=== PATIENT | female | born 1960 | race Caucasian/White ===

== ENCOUNTER → 2017-02-24 | Outpatient (CLI) | payer OTHER ==
--- NOTE | 2017-02-24 14:56 | XR ---
Lumbar spine HISTORY: Strain, pain 3 views of the lumbar spine, no comparisons Lumbar vertebral bodies show preserved height. Bone mineralization is reduced. Anterolisthesis grade 1 L4-5. There is associated loss of disc height L4-5 and possibly vacuum phenomenon. Loss of disc hei ght also suspected L5-S1. Sclerosis present in the posterior elements. IMPRESSION: Spondylolisthesis L4-5, grade 1. Degenerative disc disease. Facet arthropathy. Difficult to exclude spondylolysis. Lumbar MRI or CT may be of benefit.
== END | disposition home or self-care (01) ==
LOC: RADXRMAIN 14:38
PROVIDERS: ATTEND Emergency Medicine
DX: M43.16 Spondylolisthesis, lumbar region (principal); M51.36 Other intervertebral disc degeneration, lumbar region; M48.8X6 Other specified spondylopathies, lumbar region
CPT/HCPCS: 72100

== ENCOUNTER → 2017-03-03 | Outpatient (CLI) | payer OTHER ==
--- NOTE | 2017-03-03 12:21 | XR ---
Left hip HISTORY: Left hip pain 2 views of the left hip No comparisons Bone mineralization, joint spaces and alignment are maintained. IMPRESSION: Normal left hip.
== END ==
LOC: RADXRMAIN 11:56
PROVIDERS: ATTEND Emergency Medicine
DX: M25.552 Pain in left hip (principal)
CPT/HCPCS: 73502

== ENCOUNTER → 2017-04-07 | Outpatient (CLI) | payer OTHER ==
--- NOTE | 2017-04-07 12:05 | MR ---
EXAMINATION TYPE: MR lumbar spine wo con DATE OF EXAM: 04/07/2017 11:54 AM COMPARISON: NONE HISTORY: Sprain of ligaments of lumbar spine, pain of legs, hip, and lower back Multiplanar, MultiSpin echo imaging of the lumbar spine was performed. L1-L2: Normal disc appearance without desiccation. No herniation, protrusion or disc bulging. No ca nal stenosis is present. Foramina are patent bilaterally. L2-L3: Normal disc appearance without desiccation. No herniation, protrusion or disc bulging. No ca nal stenosis is present. Foramina are patent bilaterally. L3-L4: Normal disc appearance without desiccation. No herniation, protrusion or disc bulging. No ca nal stenosis is present. Foramina are patent bilaterally. L4-L5: There is evidence of severe disc desiccation. Grade 1 anterolisthesis L4 and L5 3 mm. Broad-ba sed disc bulge with partial encapsulating spur resulting in disc endplate complex. Effacement of the ventral thecal sac with bilateral lateral recess stenosis. No evidence for central stenosis at this t blane. Bilateral foraminal encroachment. Facet joint arthropathy without spondylolysis. Degenerative en dplate marrow changes. L5-S1: Moderate disc desiccation. Circumferential disc bulge greatest posteriorly. Mild effacement ve ntral thecal sac. No evidence for lateral recess stenosis or central stenosis. Foramina are patent b ilaterally. Lumbar segments are intact. No paraspinal masses are identified. Conus medullaris has a normal appe arance. IMPRESSION: 1. Degenerative disc disease as discussed. 2. Grade 1 anterolisthesis L4 and L5 with the disc endplate complex and bilateral lateral recess sten osis. Bilateral foraminal encroachment at this level as well.
== END | disposition home or self-care (01) ==
LOC: RADMRIMAIN 11:17
PROVIDERS: ATTEND Emergency Medicine
DX: M48.061 Spinal stenosis, lumbar region without neurogenic claudication (principal); M51.36 Other intervertebral disc degeneration, lumbar region; M43.16 Spondylolisthesis, lumbar region
CPT/HCPCS: 72148

== ENCOUNTER → 2017-06-02 | Outpatient (CLI) | payer BC ==
--- NOTE | 2017-06-02 12:34 | MM ---
Reason for exam: additional evaluation requested from prior study. Last mammogram was performed 1 year and 5 months ago. History: Patient is postmenopausal and is nulliparous. Family history of breast cancer in maternal aunt. Took estrogen for 15 years beginning at age 30. Physical Findings: Nurse did not find any significant physical abnormalities on exam. MG Diagnostic Mammo w CAD LEX Bilateral CC and MLO view(s) were taken. LM, CC with magnification, and LM with magnification view(s) were taken of the right breast. Prior study comparison: December 17, 2015, left breast MG work up mamm w CAD LT. December 04, 2015, bilateral MG screening mammo w CAD. Finding: There are heterogeneous, grouped/clustered calcifications in the posterior middle position of left breast, only weel seen on CC images. There is a chronic nodularity in the right breast. New finding since December 17, 2015 and December 04, 2015. These results were verbally communicated with the patient and result sheet given to the patient on 06/02/17. ASSESSMENT: Suspicious, BI-RAD 4 RECOMMENDATION: Stereotactic core biopsy of the left breast. Called Dr. Rainey with mammographic findings and has scheduled an appointment for the patient for 06/21/17 at 10:[address] Bolaños. Biopsy scheduled for 06/14/17. PRELIMINARY REPORT CALLED AND FAXED TO DR. BOLAÑOS ON 06/02/17.
== END ==
LOC: RADMAMWWP 07:09
PROVIDERS: ATTEND Family Medicine
DX: R92.8 Other abnormal and inconclusive findings on diagnostic imaging of breast (principal)
CPT/HCPCS: 77066

== ENCOUNTER → 2017-06-16 | Day surgery (SDC) | payer BC ==
[2017-06-16 10:10] VITALS: BP 120/82; PULSE 83; RESP 16; TEMP 97.7; BMI 40.7
--- NOTE | 2017-06-16 22:31 | MM ---
EXAMINATION TYPE: MG discontinued stereo core RT DATE OF EXAM: 06/16/2017 COMPARISON: Mammography 06/02/2017 CLINICAL HISTORY: Abnormal mammogram TECHNIQUE: Stereotactic guided core biopsy of right breast. FINDINGS: Procedure was discussed with the referring physician prior to the informed consent. Images were reviewed. The addended report was reviewed. The procedure of stereotactic guided core biopsy was explained to the patient. Benefits, alternative s, and risks were discussed. An informed consent was then obtained. A timeout was performed. Patient was placed on the stereotactic table. Extensive time was utilized to locate the suspected mani cifications. Targeting was performed. Targeting suggested these calcifications to be extremely superf icial. The area was marked and the Patient was removed from the table for 3-D tomogram imaging of the breast. Calcifications remain superficial. Calcifications are suspected to be dermal calcifications or possibly are related to the patient's tattoo. Procedure was terminated prior to skin incision. In discussion with the patient, the patient is currently having the tattoo removed and there are eller ges occurring with the tattoo which may account for the apparent recent changes on the mammogram. Given the high probability these are likely benign, short-term follow-up is recommended as a precauti on. Termination of the procedure was discussed with the patient. Patient will return for diagnostic mammo gram in 6 months to evaluate for interval change. Should these become more suspicious by mammography or suspicious clinical findings over the interval, earlier diagnostic workup can be performed. The patient was released in stable condition. IMPRESSION: 1. Stereotactic core biopsy aborted. Calcifications likely related to dermal calcification or the pat ient's changing tattoo. 2. BI-RADS 3, probably benign findings. Recommendations: 1. Right breast mammogram, with tomosynthesis, 6 months. 2. Patient should continue monthly self breast exam.
== END ==
LOC: RADMAMWWP 09:01
PROVIDERS: ATTEND Surgery
DX: R92.1 Mammographic calcification found on diagnostic imaging of breast (principal); Z53.8 Procedure and treatment not carried out for other reasons

== ENCOUNTER → 2017-06-20 | Outpatient (CLI) | payer BC ==
--- NOTE | 2017-06-21 10:45 | ECHOF ---
Referral Reason:I10 Essential hypertension MEASUREMENTS -------- HEIGHT: 160.0 cm WEIGHT: 104.3 kg BP: RVIDd: 3.0 cm (< 3.3) IVSd: 1.0 cm (0.6 - 1.1) LVIDd: 4.5 cm (3.9 - 5.3) LVPWd: 1.0 cm (0.6 - 1.1) IVSs: 1.5 cm LVIDs: 2.9 cm LVPWs: 1.6 cm LAESV Index (A-L): 12.07 ml/m Ao Diam: 3.2 cm (2.0 - 3.7) AV Cusp: 2.0 cm (1.5 - 2.6) LA Diam: 3.5 cm (2.7 - 3.8) MV E Tahir: 0.65 m/s MV DecT: 305 ms MV A Tahir: 0.77 m/s MV E/A Ratio: 0.85 RAP: 5.00 mmHg RVSP: 10.74 mmHg FINDINGS -------- Sinus rhythm. This was a technically adequate study. The left ventricular size is normal. Left ventricular wall thickness is normal. Overall left vent ricular systolic function is normal with, an EF between 60 - 65 %. The right ventricle is normal in size and function. Normal LA size by volume 22+/-6 ml/m2. The right atrium is normal in size. The aortic valve is trileaflet, and appears structurally normal. No aortic stenosis or regurgitation. The mitral valve is normal. There is trace to mild mitral regurgitation. Trace tricuspid regurgitation present. Right ventricular systolic pressure is normal at < 35 mmHg. There is no evidence of pulmonary hypertension. Trace/mild (physiologic) pulmonic regurgitation. The aortic root size is normal. Normal inferior vena cava with normal inspiratory collapse consistent with estimated right atrial pre ssure of 5 mmHg. The pericardium is normal. There is no pericardial effusion. CONCLUSIONS -------- 1. Sinus rhythm. 2. This was a technically adequate study. 3. The left ventricular size is normal. 4. Left ventricular wall thickness is normal. 5. Overall left ventricular systolic function is normal with, an EF between 60 - 65 %. 6. Normal LA size by volume 22+/-6 ml/m2. 7. The aortic valve is trileaflet, and appears structurally normal. No aortic stenosis or regurgitati on. 8. There is trace to mild mitral regurgitation. 9. Trace tricuspid regurgitation present. 10. Right ventricular systolic pressure is normal at < 35 mmHg. 11. There is no evidence of pulmonary hypertension. 12. Trace/mild (physiologic) pulmonic regurgitation. 13. The aortic root size is normal. 14. There is no pericardial effusion. DOCTOR OF [employer]APR[employer]ATHIC MEDICINE: Tonny Briceño RDCS
== END | disposition home or self-care (01) ==
LOC: RADECHMAIN 16:01
PROVIDERS: ATTEND Family Medicine
DX: I08.1 Rheumatic disorders of both mitral and tricuspid valves (principal); I10 Essential (primary) hypertension
CPT/HCPCS: 93306

== ENCOUNTER → 2019-06-29 | Outpatient (CLI) | payer BC ==
--- NOTE | 2019-07-03 10:18 | MM ---
Reason for exam: screening (asymptomatic). Last mammogram was performed 2 years and 1 month ago. History: Patient is postmenopausal and is nulliparous. Family history of breast cancer in maternal aunt. MG discontinued stereo core RT of the right breast, June 16, 2017. Took estrogen for 15 years beginning at age 30. Physical Findings: A clinical breast exam by your physician is recommended on an annual basis and results should be correlated with mammographic findings. MG 3D Screening Mammo W/Cad Bilateral CC and MLO view(s) were taken. Prior study comparison: June 02, 2017, bilateral MG diagnostic mammo w CAD LEX. December 17, 2015, left breast MG work up mamm w CAD LT. There are scattered fibroglandular densities. No significant changes when compared with prior studies. ASSESSMENT: Benign, BI-RAD 2 RECOMMENDATION: Routine screening mammogram of both breasts in 1 year.
== END | disposition home or self-care (01) ==
LOC: RADMAMWWP 13:45
PROVIDERS: ATTEND Family Medicine
DX: Z12.31 Encounter for screening mammogram for malignant neoplasm of breast (principal)
CPT/HCPCS: 77063; 77067

== ENCOUNTER → 2021-09-09 | Outpatient (CLI) | payer OTHER ==
--- NOTE | 2021-09-10 11:55 | MM ---
Reason for exam: screening (asymptomatic). Last mammogram was performed 2 years and 2 months ago. History: Patient is postmenopausal and is nulliparous. Family history of breast cancer in maternal aunt. MG discontinued stereo core RT of the right breast, June 16, 2017. Took estrogen for 15 years beginning at age 30. Physical Findings: A clinical breast exam by your physician is recommended on an annual basis and results should be correlated with mammographic findings. MG 3D Screening Mammo W/Cad Bilateral CC and MLO view(s) were taken. XCCL view(s) were taken of the left breast. Prior study comparison: June 29, 2019, bilateral MG 3d screening mammo w/cad. June 02, 2017, bilateral MG diagnostic mammo w CAD LEX. There are scattered fibroglandular densities. No significant changes when compared with prior studies. ASSESSMENT: Benign, BI-RAD 2 RECOMMENDATION: Routine screening mammogram of both breasts in 1 year.
== END | disposition home or self-care (01) ==
LOC: RADMAMWWP 15:02
PROVIDERS: ATTEND Family Medicine
DX: Z12.31 Encounter for screening mammogram for malignant neoplasm of breast (principal)
CPT/HCPCS: 77063; 77067

== ENCOUNTER → 2021-12-08 | Outpatient (CLI) | payer OTHER ==
--- NOTE | 2021-12-08 13:13 | CA ---
Stress Echo Report Caterina Lobo Age: 61 Gender: F : 1960 Exam Date: 12/08/2021 09:35 Exam Location: [facility] Ht (in): 62 Wt (lb): 240 Ordering Physician: Darin Rainey MD Referring Physician: Redd CHILDS Senior Quality Technician: PATRICIA Technologist Procedure CPT: Indication: R07.89 chest pain ICD-9 Codes: Rhythm: Patient History: Cardiac Medications: Medications in past 24 hours: Contrast: Stress Results Protocol: Ye Total dose(mL): Exercise Duration (min:sec): [address] Depression (mm): Angina Score: Odom Score: METS: 5.8 Resting HR: 73 Resting BP: 121 / 74 Peak HR: 149 Peak BP: 204 / 61 Max Predicted HR: 159 94 % Max Predicted HR Target HR: 135 Double Product: [id number] Stress Summary: BP Response: Reason for Termination: Cardiac Symptoms: ECG Analysis Resting ECG: Stress ECG: Arrhythmia: Echo Analysis Resting Echo: Peak Echo Analysis: MEASUREMENTS (Male/Female) Normal Values CONCLUSIONS Patient underwent exercise stress echo with a Ye protocol treadmill stress test. Patient exercised into Stage 1 for a total of 4 minutes and 4 seconds. Patient's maximum heart rate was 149 which represented 93% age-predicted maximum heart rate. Stress EKG portion: At baseline patient's EKG showed normal sinus rhythm, normal axis, no significant ST or T wave abnormalities. At peak exercise, EKG showed nondiagnostic 0.[address] depressions in the inferior and lateral leads. Stress echo portion: 2-D echocardiogram was performed in the parasternal long, personal short, apical 2 and apical four-chamber views at rest, peak exercise and in recovery. At baseline, echocardiogram showed left ventricular ejection fraction 55% without wall motion abnormalities. With peak exercise, echocardiogram shows improvement in left ventricular ejection fraction, increase contractility, decrease in left ventricular end systolic dimension without wall motion abnormalities consistent with a normal response to exercise. Conclusions: 1. Normal EKG and echo response to exercise without evidence of inducible ischemia. 2. Poor exercise capacity. 3. Normal left ventricular ejection fraction 55% Dr. Rudy Flores DO (Electronically Signed) Final Date: 08 December 2021 13:12
== END | disposition home or self-care (01) ==
LOC: RADNMMAIN 09:02
PROVIDERS: ATTEND Family Medicine
DX: R07.89 Other chest pain (principal)
CPT/HCPCS: 93351